=== PATIENT | male | born 1965 | race Caucasian/White ===

== ENCOUNTER 2018-11-10 14:48 | Emergency (ER) | payer OTHER ==
[~2018-11-10] VITALS: Ht 160 cm; Wt 88.6 kg
[~2018-11-10 14:48] MED LIST: OMEP10 PO
[2018-11-10 14:56] VITALS: BP 153/85
== END 2018-11-10 16:58 | disposition home or self-care (01) ==
LOC: EMS 14:48
DX: S82.302A Unspecified fracture of lower end of left tibia, initial encounter for closed fracture (principal); K21.9 Gastro-esophageal reflux disease without esophagitis; W17.2XXA Fall into hole, initial encounter; Y93.89 Activity, other specified; Y92.89 Other specified places as the place of occurrence of the external cause; Y99.8 Other external cause status
CPT/HCPCS: 29515